=== PATIENT | male | born 1950 | race Two or more races ===

== ENCOUNTER 2019-03-10 19:32 | Emergency (ER) | payer BC ==
[~2019-03-10] VITALS: Ht 170.2 cm; Wt 90.7 kg
[2019-03-10 20:01] VITALS: BP 138/71
[2019-03-10] MEDS ORDERED: LIDOCAINE 1% HCL (LOCAL ANESTH.) INJ 20ML MDV IJ ONE (22:45)
[2019-03-10] MEDS ORDERED: LIDOCAINE 1% HCL (LOCAL ANESTH.) INJ 20ML MDV ONE ×2 (22:52)
[2019-03-10] MEDS ORDERED: TETANUS-DIPTH-ACEL PERTUSSIS 0.5ML SYRG IM ONE (23:30)
[2019-03-10] MEDS ORDERED: TETANUS IMMUNE GLOBULIN 250 UNIT/ML SYRG IM ONE ×2 (23:42)
== END 2019-03-10 23:51 | disposition home or self-care (01) ==
LOC: EDBD 19:32 → ER 19:32
DX: S01.81XA Laceration without foreign body of other part of head, initial encounter (principal); X58.XXXA Exposure to other specified factors, initial encounter; Y93.89 Activity, other specified; Y92.89 Other specified places as the place of occurrence of the external cause; Y99.8 Other external cause status
CPT/HCPCS: 12014; 70450; 82962; 90471; 90715; 99284; J2001